=== PATIENT | male | born 1980 | race Caucasian/White ===

== ENCOUNTER 2018-08-08 18:36 | Emergency (ER) | payer BC ==
--- OUTSIDE RECORDS SUMMARY | 2018-08-08 18:38 | XMS REPORT | Continuity of Care Document ---
:1980 Author Organization Interface Problems Problem Status Onset Classification Date Comments Source Date Reported LUMBAR 4-5 ANNA Active 05/02/19 [place] [address] [facility] LUM PAIN Active 05/02/[address] 06/07 Active 05/02/[address] HNP (<span Active Problem 06/11/2015 lumbar [facility] ID="[id number]" Medical >Confirmed</span> Center )<sup>1</sup> None Resolved Problem 06/11/2015 [facility] Obesity Active Problem 06/11/2015 [facility] KORI (<span Active Problem 06/11/2015 [facility] ID="[id number]" Medical >Confirmed</span> Center ) Pain Active Problem 06/11/2015 [facility] OTHER Active [facility] DISC Center DISPLACEMENT, Medications Medication Details Route Status Patient Ordering Order Source Instructions Provider Date Oxycodone 5 mg, 1 tab, No Longer [facility] Route: PO, Drug Active 2015 Medical form: TAB, Q4H, Center Dosing Weight 145.455, kg, PRN Pain Score 4-6, Start date: 06/08/15 8:54:00, Duration: 30 day, Stop date: 07/08/15 8:53:00Notes: (Same as: Roxicodone) Metoprolol 1 mg, 1 mL, No Longer [facility] Route: IVP, Drug Active 2015 Medical form: INJ, Center Q5Min, Dosing Weight 145.455, kg, PRN Other -See Comment, Start date: 06/08/15 8:54:00, Duration: 5 doses or times, Stop date: 06/09/15 0:00:00Notes: (Same as: Lopressor) Push over 2 minutes Labetalol 10 mg, 2 mL, No Longer [facility] Route: IVP, Drug Active 2015 Medical form: INJ, Center Q5Min, Dosing Weight 145.455, kg, PRN Elevated BP, Start date: 06/08/15 8:54:00, Duration: 5 doses or times, Stop date: 06/09/15 0:00:00 Ondansetron 4 mg, 2 mL, No Longer [facility] Route: IVP, Drug Active 2015 Medical form: INJ, ONCE, Center Dosing Weight 145.455, kg, PRN Nausea & Vomiting, Start date: 06/08/15 8:54:00Notes: (Same as: Zodanae) MEDICATION WASTE Product Size: 4 mg Product Wasted: ___ mg Hydromorphone 0.5 mg, 0.25 mL, No Longer [place] Route: IVP, Drug Active 2015 Medical form: INJ, Center Q5Min, Dosing Weight 145.455, kg, PRN Pain Score 7-10, Start date: 06/08/15 8:54:00, Duration: 4 doses or times, Stop date: 06/09/15 0:00:00Notes: Same as: Dilaudid Naloxone 0.04 mg, 0.1 mL, No Longer [facility] Route: IVP, Drug Active 2015 Medical form: INJ, Center Q2MIN, Dosing Weight 145.455, kg, PRN Narcotic Reversal, Start date: 06/08/15 8:54:00, Duration: 8 doses or times, Stop date: 06/09/15 0:00:00Notes: Same as Narcan Flumazenil 0.2 mg, 2 mL, No Longer [facility] Route: IVP, Drug Active 2015 Medical form: INJ, PRN, Center Dosing Weight 145.455, kg, PRN Benzodiazepine Reversal, Initial dose, Start date: 06/08/15 8:54:00, Duration: 5 doses or times, Stop date: 06/09/15 0:00:00Notes: (Same as: Romazicon) Methocarbamol 500 mg=1 tab, Active Sandi 500 MG Oral PO, Q6H, PRN 2016 Medical Tablet Spasms, # 90 Center [Robaxin] tab, 0 Refill(s) Docusate Sodium 100 mg=1 cap, Active Sandi 100 MG Oral PO, BID, PRN 2016 Medical Capsule Constipation, # Center [Colace] 60 cap, 0 Refill(s) Famotidine 40 40 mg=1 tab, PO, Active [facility] MG Oral Tablet Daily, # 30 tab, 2016 Medical [Pepcid] 0 Refill(s) Center {21 See Active [facility] (Methylpredniso Instructions, 2015 Medical lone 4 MG Oral PO, Take by Center Tablet mouth as [Medrol]) } directed on Pack [Medrol label., X 6 day, Dosepak] # 1 Pack, 0 Refill(s) ceFAZolin 2 gm, 100 mL, Inactive [facility] Route: IVPB, 2015 Medical Drug form: INJ, Center PRE OP, Start date: 06/08/15 5:00:00, Duration: 30 day, Stop date: 07/08/15 4:59:00Notes: Same as: Ancef Allergies, Adverse Reactions, Alerts Substance Category Reaction Severity Reaction Status Date Comments Source type Reported Immunizations Immunization Date Given Site Status Last Updated Comments Source Results Order Name Results Value Reference Date Interpretation Comments Source Range CHEM PANEL B/C Ratio 11 6 - [address] CHEM PANEL AGAP 12.0 10.0 - 20.0 [facility] meq/L [address] [place] [address] CHEM PANEL Globulin 3.1 2.0 - 4.0 [facility] g/dL [address] [place] [address] CHEM PANEL A/G Ratio 1.5 0.7 - 1.[address] CHEM PANEL eGFR 100 05/28/ Result Comment: The eGFR is calculated using the CKD-EPI formula. In most young, healthy individuals the eGFR will be > 90 mL/min/1.73m2. The eGFR declines with age. An eGFR of 60-89 may be normal in [facility] mL/min/ 2015 some populations, particularly the elderly, for whom the CKD-EPI formula has not been extensively validated. Use of the eGFR is not recommended in the following populations: [facility] 1.73m2 Center Individuals with unstable creatinine concentrations, including patients and those with serious co-morbid conditions. Patients with extremes in muscle mass or diet. The data above are obtained from the National Kidney Disease Education Program (NKDEP) which additionally recommends that when the eGFR is used in patients with extremes of body mass index for purposes of drug dosing, the eGFR should be multiplied by the estimated BMI. CHEM PANEL Bili Total 0.7 0.2 - 1.3 [place] mg/dL 2015 [facility] CHEM PANEL ALT 85 0 - 65 [place] unit/L 2015 [facility] [place] CHEM PANEL Albumin Lvl 4.5 3.5 - 5.0 [place] g/dL 2015 [facility] CHEM PANEL Alk Phos 55 39 - 136 [place] unit/L 2015 [facility] CHEM PANEL AST 31 0 - 37 [place] unit/L 2015 [facility] CHEM PANEL Glucose Lvl 106 70 - 99 [place] mg/dL 2015 [facility] CHEM PANEL BUN 11 7 - 22 [place] mg/dL 2015 [facility] CHEM PANEL Creatinine 0.99 0.50 - 1.40 [place] Lvl mg/dL 2015 [facility] CHEM PANEL Sodium Lvl 143 135 - 145 [place] meq/L 2015 [facility] CHEM PANEL Potassium Lvl 5.0 3.5 - 5.1 [place] meq/L 2015 [facility] CHEM PANEL Chloride Lvl 104 95 - 109 [place] meq/L 2015 [facility] CHEM PANEL CO2 32 24 - 32 [place] meq/L 2015 [facility] CHEM PANEL Calcium Lvl 9.3 8.5 - 10.5 [place] mg/dL 2015 [facility] CHEM PANEL Total Protein 7.6 6.4 - 8.4 [place] g/dL 2015 [facility] HEMATOLOGY Lymphocytes # 2.9 1.0 - 5.5 [place] K/CM 2015 [facility] HEMATOLOGY Monocytes # 0.4 0.0 - 0.8 [place] K/CM 2015 [facility] HEMATOLOGY Monocytes 5.1 % 2.0 - 12.0 [facility] 2015 [facility] HEMATOLOGY Basophils 0.5 % 0.0 - 1.0 [facility] 2015 [facility] HEMATOLOGY Eosinophils 1.5 % 0.0 - 4.0 [facility] 2015 [facility] HEMATOLOGY Segs-Bands # 5.1 1.5 - 8.1 [place] K/CM 2015 [facility] HEMATOLOGY Segs 59.4 % 45.0 - 75.0 [facility] 2015 [facility] HEMATOLOGY Lymphocytes 33.5 % 20.0 - 40.[address] HEMATOLOGY Eosinophils # 0.1 0.0 - 0.5 [facility] 2015 [facility] HEMATOLOGY INR 0.99 0.85 - 1.[address] HEMATOLOGY PT 13.4 s 12.0 - 14.[address] HEMATOLOGY PTT 29.6 s 22.9 - 35.[address] HEMATOLOGY MCHC 33.7 32.0 - 36.0 [facility] g/dL 2015 [facility] HEMATOLOGY RDW 13.4 % 11.5 - 14.[address] HEMATOLOGY MPV 8.3 fL 7.4 - 10.[address] HEMATOLOGY Platelet 235 133 - [address] HEMATOLOGY MCH 29.5 pg 27.0 - 31.[address] HEMATOLOGY Hgb 16.5 14.0 - 18.0 [facility] g/dL 2015 [facility] HEMATOLOGY MCV 87.5 fL 80.0 - 94.[address] HEMATOLOGY Hct 49.0 % 42.0 - 54.[address] HEMATOLOGY WBC 8.6 3.7 - 10.[address] HEMATOLOGY RBC 5.60 4.70 - 6.[address] SPECIAL Hgb A1C 5.7 % <=5.6 % [facility] CHEMISTRY [address] [place] [address] Vital Signs Vital Sign Value Date Comments Source Respitory Rate 16 06/08/2015 [facility] Systolic (mm Hg) 128 06/08/2015 [facility] Diastolic (mm Hg) 67 06/08/2015 [facility] Respitory Rate 13 06/08/2015 [facility] Systolic (mm Hg) 124 06/08/2015 [facility] Diastolic (mm Hg) 86 06/08/2015 [facility] Respitory Rate 14 06/08/2015 [facility] Systolic (mm Hg) 99 06/08/2015 [facility] Diastolic (mm Hg) 73 06/08/2015 [facility] Weight 145.455 06/08/2015 [facility] BMI Calculated 42.31 06/08/2015 [facility] Height 185.42 cm 06/08/2015 [facility] Heart Rate 94 06/08/2015 [facility] Height 182.88 cm 05/29/2015 [facility] Weight 151.364 05/29/2015 [facility] BMI Calculated 45.26 05/29/2015 [facility] Encounters Location Location Encounter Encounter Reason Attending ADM DC Status Source Details Type Number For Provider Date Date Visit Outpatient [id number] ARNAUD TOWNSEND 06/07 [facility] [place] [facility] [place] [facility] [id number] Arnaud Townsend 06/07 06/08 [facility] Surgery /2015 [facility] Outpatient [id number] LIANG 06/19 [facility] [id number] ARNAUD TOWNSEND 08/13 [facility] [place] [place] [facility] [id number] ARNAUD TOWNSEND 11/21 [facility] [place] Procedures Procedure Code Date Perfomer Comments Source Cyst - pilonidal [id number] [facility] removed 2004 [facility] Epidural steroid [id number] [facility] injection [address] [place] [address]
--- OUTSIDE RECORDS SUMMARY | 2018-08-08 18:38 | XMS REPORT | Summary of Care ---
:1980 Author Organization [facility] Address [address], [place] [address]- Encounter HQ Narda(FIN) [id number] Date(s): 06/08/15 - 06/08/15 [facility] [address] [place] [address]- [employer] Discharge Disposition: Home Attending Physician: Ciro Serrato MD Admitting Physician: Ciro Serrato MD Referring Physician: Ciro Serrato MD Vital Signs Most recent to oldest 1 2 3 [Reference Range]: Height 185.42 cm 182.88 cm (06/08/15 6:37 AM) (05/29/15 3:29 PM) Blood Pressure [90-140/60-90 128/67 mmHg 124/86 mmHg 99/73 mmHg mmHg] (06/08/15 10:47 AM) (06/08/15 10:31 AM) (06/08/15 10:20 AM) Respiratory Rate [14-20 16 BRMIN 13 BRMIN 14 BRMIN BRMIN] (06/08/15 10:47 AM) *LOW* (06/08/15 10:20 AM) (06/08/15 10:31 AM) Peripheral Pulse Rate 94 bpm [60-100 bpm] (06/08/15 6:37 AM) Weight 145.455 kg 151.364 kg (06/08/15 6:37 AM) (05/29/15 3:29 PM) Body Mass Index 42.31 m2 45.26 m2 (06/08/15 6:37 AM) (05/29/15 3:29 PM) Problem List Condition Effective Dates Status Health Status Informant HNP (herniated nucleus Active pulposus)(Confirmed)1 None(Confirmed) Resolved Obesity(Confirmed) Active KORI (obstructive sleep Active apnea)(Confirmed) Pain(Confirmed) Active 1lumbar Allergies, Adverse Reactions, Alerts Substance Reaction Severity Status NKDA Active Medications ceFAZolin 2 gm, 100 mL, Route: IVPB, Drug form: INJ, PRE OP, Start date: 06/08/15 5:00:00 , Duration: 30 day, Stop date: 07/08/15 4:59:00 Notes: Same as: Ancef Start Date: 06/08/15 Stop Date: 06/08/15 Status: CompletedColace 100 mg oral capsule 100 mg=1 cap, PO, BID, PRN Constipation, # 60 cap, 0 Refill(s) Start Date: 06/08/15 Status: Orderedflumazenil 0.2 mg, 2 mL, Route: IVP, Drug form: INJ, PRN, Dosing Weight 145.455, kg, PRN Benzodiazepine Reversal, Initial dose, Start date: 06/08/15 8:54:00, Duration: 5 doses or times, Stop date: 06/09/15 0:00:00 Notes: (Same as: Romazicon) Start Date: 06/08/15 Stop Date: 06/09/15 Status: Completedhydromorphone 0.5 mg, 0.25 mL, Route: IVP, Drug form: INJ, Q5Min, Dosing Weight 145.455, kg, PRN Pain Score 7-10, Start date: 06/08/15 8:54:00, Duration: 4 doses or times, Stop date: 06/09/15 0:00:00 Notes: Same as: Dilaudid Start Date: 06/08/15 Stop Date: 06/09/15 Status: Completedlabetalol 10 mg, 2 mL, Route: IVP, Drug form: INJ, Q5Min, Dosing Weight 145.455, kg, PRN Elevated BP, Start date: 06/08/15 8:54:00, Duration: 5 doses or times, Stop date : 06/09/15 0:00:00 Start Date: 06/08/15 Stop Date: 06/09/15 Status: CompletedMedrol Dosepak 4 mg oral tablet See Instructions, PO, Take by mouth as directed on label., X 6 day, # 1 Pack, 0 Refill(s) Start Date: 06/08/15 Stop Date: 06/14/15 Status: Orderedmetoprolol 1 mg, 1 mL, Route: IVP, Drug form: INJ, Q5Min, Dosing Weight 145.455, kg, PRN Other -See Comment, Start date: 06/08/15 8:54:00, Duration: 5 doses or times, Stop date: 06/09/15 0:00:00 Notes: (Same as: Lopressor)Push over 2 minutes Start Date: 06/08/15 Stop Date: 06/09/15 Status: Completednaloxone 0.04 mg, 0.1 mL, Route: IVP, Drug form: INJ, Q2MIN, Dosing Weight 145.455, kg, PRN Narcotic Reversal, Start date: 06/08/15 8:54:00, Duration: 8 doses or times , Stop date: 06/09/15 0:00:00 Notes: Same as Narcan Start Date: 06/08/15 Stop Date: 06/09/15 Status: Completedondansetron 4 mg, 2 mL, Route: IVP, Drug form: INJ, ONCE, Dosing Weight 145.455, kg, PRN Nausea & Vomiting, Start date: 06/08/15 8:54:00 Notes: (Same as: Nubia) MEDICATION WASTE Product Size: 4 mgProduct Wasted: ___ mg Start Date: 06/08/15 Stop Date: 06/09/15 Status: DiscontinuedoxyCODONE 5 mg, 1 tab, Route: PO, Drug form: TAB, Q4H, Dosing Weight 145.455, kg, PRN Pain Score 4-6, Start date: 06/08/15 8:54:00, Duration: 30 day, Stop date: 07/07 8:53:00 Notes: (Same as: Roxicodone) Start Date: 06/08/15 Stop Date: 06/09/15 Status: DiscontinuedPepcid 40 mg oral tablet 40 mg=1 tab, PO, Daily, # 30 tab, 0 Refill(s) Start Date: 06/08/15 Status: OrderedRobaxin 500 mg oral tablet 500 mg=1 tab, PO, Q6H, PRN Spasms, # 90 tab, 0 Refill(s) Start Date: 06/08/15 Stop Date: 07/09/15 Status: Ordered Results ELECTROLYTES Most recent to oldest [Reference Range]: 1 Sodium Lvl [135-145 mEq/L] 143 mEq/L (05/29/15 12:30 PM) Potassium Lvl [3.5-5.1 mEq/L] 5.0 mEq/L (05/29/15 12:30 PM) Chloride Lvl [95-109 mEq/L] 104 mEq/L (05/29/15 12:30 PM) CO2 [24-32 mEq/L] 32 mEq/L (05/29/15 12:30 PM) AGAP [10.0-20.0 mEq/L] 12.0 mEq/L (05/29/15 12:30 PM) CHEM PANEL Most recent to oldest [Reference Range]: 1 Creatinine Lvl [0.50-1.40 mg/dL] 0.99 mg/dL (05/29/15 12:30 PM) eGFR 100 mL/min/1.73m2 1 *NA* (05/29/15 12:30 PM) BUN [7-22 mg/dL] 11 mg/dL (05/29/15 12:30 PM) B/C Ratio [6-25] 11 (05/29/15 12:30 PM) Glucose Lvl [70-99 mg/dL] 106 mg/dL *HI* (05/29/15 12:30 PM) Total Protein [6.4-8.4 g/dL] 7.6 g/dL (05/29/15 12:30 PM) Albumin Lvl [3.5-5.0 g/dL] 4.5 g/dL (05/29/15 12:30 PM) Globulin [2.0-4.0 g/dL] 3.1 g/dL (05/29/15 12:30 PM) A/G Ratio [0.7-1.6] 1.5 (05/29/15 12:30 PM) Calcium Lvl [8.5-10.5 mg/dL] 9.3 mg/dL (05/29/15 12:30 PM) ALT [0-65 unit/L] 85 unit/L *HI* (05/29/15 12:30 PM) AST [0-37 unit/L] 31 unit/L (05/29/15 12:30 PM) Alk Phos [39-136 unit/L] 55 unit/L (05/29/15 12:30 PM) Bili Total [0.2-1.3 mg/dL] 0.7 mg/dL (05/29/15 12:30 PM) 1Result Comment: The eGFR is calculated using the CKD-EPI formula. In most young , healthy individualsthe eGFR will be >90 mL/min/1.73m2. The eGFR declines with age. An eGFR of 60-89 may be normal in some populations, particularly the elderly, for whom the CKD-EPI formula has not been extensively validated. Use of the eGFR is not recommended in the following populations: Individuals with unstable creatinine concentrations, including patients and those with serious co-morbid conditions. Patients with extremes in muscle mass or diet. The data above are obtained from the National Kidney Disease Education Program ( NKDEP) which additionally recommends that when the eGFR is used in patients with extremes of body mass index for purposesof drug dosing, the eGFR should be multiplied by the estimated BMI.SPECIAL CHEMISTRY Most recent to oldest [Reference Range]: 1 Hgb A1C [<=5.6 %] 5.7 % *HI* (05/29/15 12:30 PM) HEMATOLOGY Most recent to oldest [Reference Range]: 1 WBC [3.7-10.4 K/CMM] 8.6 K/CMM (05/29/15 12:30 PM) RBC [4.70-6.10 M/CMM] 5.60 M/CMM (05/29/15 12:30 PM) Hgb [14.0-18.0 g/dL] 16.5 g/dL (05/29/15 12:30 PM) Hct [42.0-54.0 %] 49.0 % (05/29/15 12:30 PM) MCV [80.0-94.0 fL] 87.5 fL (05/29/15 12:30 PM) MCH [27.0-31.0 pg] 29.5 pg (05/29/15 12:30 PM) MCHC [32.0-36.0 g/dL] 33.7 g/dL (05/29/15 12:30 PM) RDW [11.5-14.5 %] 13.4 % (05/29/15 12:30 PM) Platelet [133-450 K/CMM] 235 K/CMM (05/29/15 12:30 PM) MPV [7.4-10.4 fL] 8.3 fL (05/29/15 12:30 PM) Segs [45.0-75.0 %] 59.4 % (05/29/15 12:30 PM) Lymphocytes [20.0-40.0 %] 33.5 % (05/29/15 12:30 PM) Monocytes [2.0-12.0 %] 5.1 % (05/29/15 12:30 PM) Eosinophils [0.0-4.0 %] 1.5 % (05/29/15 12:30 PM) Basophils [0.0-1.0 %] 0.5 % (05/29/15 12:30 PM) Segs-Bands # [1.5-8.1 K/CMM] 5.1 K/CMM (05/29/15 12:30 PM) Lymphocytes # [1.0-5.5 K/CMM] 2.9 K/CMM (05/29/15 12:30 PM) Monocytes # [0.0-0.8 K/CMM] 0.4 K/CMM (05/29/15 12:30 PM) Eosinophils # [0.0-0.5 K/CMM] 0.1 K/CMM (05/29/15 12:30 PM) PT [12.0-14.7 seconds] 13.4 seconds (05/29/15 12:30 PM) INR [0.85-1.17] 0.99 (05/29/15 12:30 PM) PTT [22.9-35.8 seconds] 29.6 seconds (05/29/15 12:30 PM) Immunizations No data available for this section Procedures Procedure Date Related Diagnosis Body Site Cyst - pilonidal removed 2004 Epidural steroid injection 2014 Social History Social History Type Response Smoking Status Never smoker; Exposure to Tobacco Smoke None; Cigarette Smoking Last 365 Days No; Reg Smoking Cessation Counseling No Assessment and Plan No data available for this section
--- OUTSIDE RECORDS SUMMARY | 2018-08-08 18:38 | XMS REPORT ---
:1980 Author Organization e[employer] Care Team Providers Name Role Phone [facility] Provider Role Unavailable Allergies, Adverse Reactions, Alerts Substance Reaction Event Type N.K.D.A. Info Not Available Non Drug Allergy Problems Problem Type Condition Code Onset Dates Condition Status Problem Edema R60.9 Active Problem Hypothyroidism E03.9 Active Problem Palpitation R00.2 Active Problem Fatigue, unspecified type R53.83 Active Assessment Obstructive sleep apnea G47.33 Active Problem Hand paresthesia R20.2 Active Assessment Decreased libido R68.82 Active Assessment Carpal tunnel syndrome, bilateral G56.03 Active upper limbs Problem Decreased libido R68.82 Active Problem Abnormal levels of other serum R74.8 Active enzymes Problem Kyphosis 737.10 Active Problem Carpal tunnel syndrome, bilateral G56.03 Active upper limbs Problem Other intervertebral disc M51.37 Active degeneration, lumbosacral region Assessment 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 26983560399 1000 UNIT Orally Active 1 tablet Once a day Synthroid [facility] 10852534074 50 MCG Orally Active 1 tablet on Once a day an empty stomach in the morning Lyrica [facility] 06721021725 150 Active TAKE ONE CAPSULE BY MOUTH TWICE DAILY Vitamin B-1 ND 78900583124 100 MG Orally Active 1 tablet Once a day Omeprazole ND 17386381180 40 MG Orally Active 1 capsule Once a day Lyrica [facility] 38148781967 150 MG Orally Active 1 capsule 1 Twice a day to 3 hours before bedtime in the evening Results No Known Results Summary Purpose [facility]
--- OUTSIDE RECORDS SUMMARY | 2018-08-08 18:39 | XMS REPORT ---
:1980 Author Organization [employer] Care Team Providers Name Role Phone Benedict Alexandr Provider Role Unavailable Allergies, Adverse Reactions, Alerts Substance Reaction Event Type N.K.D.A. 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 Problem Other intervertebral disc M51.37 Active degeneration, lumbosacral region Problem Abnormal levels of other serum R74.8 Active enzymes Problem Adult BMI 40.0-44.9 kg/sq m Z68.41 Active Problem 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 Assessment 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 Assessment Hypothyroidism E03.9 Active Problem 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 Assessment Neuropathy, peripheral G62.9 Active Problem Fatigue, unspecified type R53.83 Active Problem Hand paresthesia R20.2 Active Problem Family history of melanoma Z80.8 Active Problem Decreased libido R68.82 Active Problem Neuropathy, peripheral G62.9 Active Problem Mixed hyperlipidemia E78.2 Active Problem Carpal tunnel syndrome, bilateral G56.03 Active upper limbs Problem Abnormal liver enzymes R74.8 Active Problem Edema R60.9 Active Problem Obstructive sleep apnea G47.33 Active Problem Low back pain M54.5 Active Medications Medication Code Code Instructions Start End Status Dosage System Date Date Duloxetine HCl [facility] 96186944557 30 MG Orally May 22, Active 1 capsule Once a day [address] [facility] 65766160970 150 MG Orally Active 1 capsule Twice a day 1 to 3 hours before bedtime in the evening Omeprazole [facility] 28113247330 40 MG Orally Active 1 capsule Once a day Vitamin B-[address] [facility] 86916830654 100 MG Orally Active 1 tablet Once a day Synthroid [facility] 09661361930 50 MCG Orally Active 1 tablet Once a day on an empty stomach in the morning Vitamin D [facility] 24816243531 1000 UNIT Orally Active 1 tablet Once a day Results No Known Results Summary Purpose [employer] Submission
--- OUTSIDE RECORDS SUMMARY | 2018-08-08 18:39 | XMS REPORT ---
:1980 Author Organization e[employer]Works Care Team Providers Name Role Phone Alexandr Mcmullen Provider Role Unavailable Allergies, Adverse Reactions, Alerts Substance Reaction Event Type N.K.D.A. 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 Problem Carpal tunnel syndrome, bilateral G56.03 Active upper limbs Problem Other intervertebral disc M51.37 Active degeneration, lumbosacral region Problem Fatigue, unspecified type R53.83 Active Problem Hand paresthesia R20.2 Active Problem Neuropathy, peripheral G62.9 Active Assessment Family history of melanoma Z80.8 Active Assessment 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 Problem Low back pain M54.5 Active Problem Abnormal liver enzymes R74.8 Active Problem Mixed hyperlipidemia E78.2 Active Problem Edema R60.9 Active Problem Obstructive sleep apnea G47.33 Active Problem Palpitation R00.2 Active Medications Medication Code Code Instructions Start End Status Dosage System Date Date Lyrica [facility] 06180993111 150 Active TAKE ONE CAPSULE BY MOUTH TWICE DAILY Neomycin-Polym [facility] 35937059110 3.5-71679-7 Otic Nov 04, Active 4 drops yxin-HC Twice a day 2018 into affected ear Vitamin B-1 ND 14652948595 100 MG Orally Active 1 tablet Once a day Synthroid ND 28159856220 50 MCG Orally Active 1 tablet on Once a day an empty stomach in the morning Omeprazole ND 48646029034 40 MG Orally Active 1 capsule Once a day Lyrica [facility] 22230994901 150 MG Orally Active 1 capsule 1 Twice a day to 3 hours before bedtime in the evening Vitamin D [facility] 23250005269 1000 UNIT Orally Active 1 tablet Once a day Results No Known Results Summary Purpose eClinicalWorks Submission
--- OUTSIDE RECORDS SUMMARY | 2018-08-08 18:39 | XMS REPORT ---
:1980 Author Organization [employer]Works Care Team Providers Name Role Phone Benedict Alexandr Provider Role Unavailable Allergies No Known Allergies Problems Problem Type Condition Code Onset Dates Condition Status Problem Edema R60.9 Active Problem Hypothyroidism E03.9 Active Problem Palpitation R00.2 Active Problem Fatigue, unspecified type R53.83 Active Problem Hand paresthesia R20.2 Active Problem Decreased libido R68.82 Active Problem Abnormal levels of other serum R74.8 Active enzymes Problem Kyphosis 737.10 Active Problem Carpal tunnel syndrome, bilateral G56.03 Active upper limbs Problem Other intervertebral disc M51.37 Active degeneration, lumbosacral region Problem Mixed hyperlipidemia E78.2 Active Problem Obstructive sleep apnea G47.33 Active Problem Low back pain M54.5 Active Problem Neuropathy, peripheral G62.9 Active Problem Abnormal liver enzymes R74.8 Active Medications No Known Medications Results No Known Results Summary Purpose eClinicalWorks Submission
--- OUTSIDE RECORDS SUMMARY | 2018-08-08 18:39 | XMS REPORT ---
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 Problem Carpal tunnel syndrome, bilateral G56.03 Active upper limbs Problem Other intervertebral disc M51.37 Active degeneration, lumbosacral region Problem Fatigue, unspecified type R53.83 Active Problem Hand paresthesia R20.2 Active Problem Neuropathy, peripheral G62.9 Active Assessment Carpal tunnel syndrome, bilateral G56.03 Active upper limbs Problem Low back pain M54.5 Active Problem Abnormal liver enzymes R74.8 Active Problem Mixed hyperlipidemia E78.2 Active Problem Edema R60.9 Active Problem Obstructive sleep apnea G47.33 Active Problem Palpitation R00.2 Active Medications Medication Code System Code Instructions Start End Date Status Dosage Date Lyrica [facility] 03897492364 150 MG Orally Active 1 capsule 1 Twice a day to 3 hours before bedtime in the evening Results No Known Results Summary Purpose eClinicalWorks Submission
--- OUTSIDE RECORDS SUMMARY | 2018-08-08 18:39 | XMS REPORT ---
:1980 [facility] Team Providers Name Role Phone Jose Juan Mcmullenh Provider Role Unavailable Allergies, Adverse Reactions, Alerts Substance Reaction Event Type N.K.D.A. Info Not Available Non Drug Allergy Problems Problem Type Condition Code Onset Dates Condition Status Assessment Abnormal liver enzymes R74.8 Active Assessment Abnormal levels of other serum R74.8 Active enzymes Assessment Carpal tunnel syndrome, bilateral G56.03 Active upper limbs Assessment Decreased libido R68.82 Active Assessment Obstructive sleep apnea G47.33 Active Problem Palpitation R00.2 Active Assessment Mixed hyperlipidemia E78.2 Active Problem Hypothyroidism E03.9 Active Assessment Fatigue, unspecified type R53.83 Active Problem Carpal tunnel syndrome, bilateral G56.03 Active upper limbs Problem Abnormal levels of other serum R74.8 Active enzymes Problem Idiopathic kyphosis M40.209 Active Problem 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 Problem Family history of melanoma Z80.8 Active Assessment Refused influenza vaccine Z28.21 Active Assessment Adult BMI 40.0-44.9 kg/sq m Z68.41 Active Problem Adult BMI 40.0-44.9 kg/sq m Z68.41 Active Assessment Hypothyroidism E03.9 Active Problem Hand paresthesia R20.2 Active Problem Other intervertebral disc M51.37 Active degeneration, lumbosacral region Problem Decreased libido R68.82 Active Problem Fatigue, unspecified type R53.83 Active Problem Neuropathy, peripheral G62.9 Active Problem Mixed hyperlipidemia E78.2 Active Assessment Well adult on routine health check Z00.00 Active Problem Abnormal liver enzymes R74.8 Active Problem Edema R60.9 Active Problem Obstructive sleep apnea G47.33 Active Problem Low back pain M54.5 Active Medications Medication Code Code Instructions Start End Status Dosage System Date Date Omeprazole NDC 97051150184 40 MG Orally Active 1 capsule Once a day Synthroid NDC 21699362817 50 MCG Orally Active 1 tablet on Once a day an empty stomach in the morning Synthroid NDC 54179320243 50 MCG Orally Active 1 tablet on Once a day an empty stomach in the morning Lyrica [facility] 30494413245 150 MG Orally Active 1 capsule 1 Twice a day to 3 hours before bedtime in the evening Neomycin-Polym [facility] 44305647057 3.5-61092-1 Otic Nov 04, Active 4 drops yxin-HC Twice a day 2017 into affected ear Vitamin D [facility] 09870715147 1000 UNIT Orally Active 1 tablet Once a day Vitamin B-1 [facility] 95027695235 100 MG Orally Active 1 tablet Once a day Lyrica [facility] 64444623131 150 Active TAKE ONE CAPSULE BY MOUTH TWICE DAILY Results No Known Results Summary Purpose eClinicalWorks Submission
--- OUTSIDE RECORDS SUMMARY | 2018-08-08 18:39 | XMS REPORT ---
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 Problem Carpal tunnel syndrome, bilateral G56.03 Active upper limbs Problem Other intervertebral disc M51.37 Active degeneration, lumbosacral region Problem Fatigue, unspecified type R53.83 Active Problem Hand paresthesia R20.2 Active Problem Neuropathy, peripheral G62.9 Active Assessment Influenza-like illness R69 Active Assessment Acute non-recurrent maxillary J01.00 Active sinusitis Problem Low back pain M54.5 Active Problem Abnormal liver enzymes R74.8 Active Problem Mixed hyperlipidemia E78.2 Active Problem Edema R60.9 Active Problem Obstructive sleep apnea G47.33 Active Problem Palpitation R00.2 Active Medications Medication Code Code Instructions Start End Status Dosage System Date Date Lyrica [facility] 46480649354 150 Active TAKE ONE CAPSULE BY MOUTH TWICE DAILY Omeprazole ND 69573905507 40 MG Orally Active 1 capsule Once a day Vitamin B-1 [facility] 03360248256 100 MG Orally Active 1 tablet Once a day Vitamin D [facility] 55962522371 1000 UNIT Active 1 tablet Orally Once a day Neomycin-Polymyx [facility] 86415886641 3.5-66128-4 Nov 04, Active 4 drops in-HC Otic Twice a 2018 into day affected ear Lyrica [facility] 66886985090 150 MG Orally Active 1 capsule 1 Twice a day to 3 hours before bedtime in the evening Azithromycin ND 43396349134 250 MG Orally Feb 17, Feb 22, Active 2 tablets Once a day 2017 2017 on the first day, then 1 tablet daily for 4 days Synthroid [facility] 14729084772 50 MCG Orally Active 1 tablet on Once a day an empty stomach in the morning Results Name Result Date Reference Range Unit Abnormality Flag FLU TEST ----A Neg [id number] ----B Neg [id number] Summary Purpose eClinicalWorks Submission
[2018-08-08] MEDS ORDERED: DIAZEPAM 5 MG TABLET ONE (19:31)
[2018-08-08] MEDS ORDERED: HYDROCODONE/APAP 10/325 TAB ONE (19:31)
[2018-08-08] MEDS ORDERED: KETOROLAC 30 MG/ML INJ ONE (20:39)
[2018-08-08] MEDS ORDERED: MORPHINE 4 MG/ML SYR ONE (20:39)
--- NOTE | 2018-08-08 21:30 | EDPHYS ---
Physician Documentation [facility] Name: Won Lam Age: 38 yrs Sex: Male : 1980 Arrival Date: 08/08/2018 Time: 18:39 Bed 25 Private MD: ED Physician Noble Moreno HPI: 08/08 19:00 This 38 yrs old Male presents to ER via Ambulatory with complaints of jmm Shoulder Pain, Neck and Upper Back Pain. 19:00 The patient or guardian complains of pain, that is acute. Onset: The symptoms/episode jmm began/occurred gradually, 1 week(s) ago. Modifying factors: the symptoms are alleviated by nothing. The symptoms are aggravated by movement. This is a 38 year old male with no chronic medical conditions that presents to the ED with complaints of left upper back pain which he awoke to approx 1 week ago. patient denies chest pain, denies shortness of breath. patient states pain is not relieved with otc medication. . Historical: - Allergies: 18:41 No Known Drug Allergies; sv - PMHx: 18:41 None; sv - PSHx: 18:41 cyst removal; back; sv - Immunization history:: Adult Immunizations up to date. - Social history:: Smoking status: Patient uses tobacco products, vape. - Ebola Screening: : No symptoms or risks identified at this time. ROS: 19:00 Constitutional: Negative for fever, chills, and weight loss, Cardiovascular: Negative jmm for chest pain, palpitations, and edema, Respiratory: Negative for shortness of breath, cough, wheezing, and pleuritic chest pain. 19:00 Back: Positive for pain at rest, pain with movement. 19:00 All other systems are negative. Exam: 19:00 Constitutional: This is a well developed, well nourished patient who is awake, alert, jmm and in no acute distress. Head/Face: atraumatic. Eyes: EOMI, no conjunctival erythema appreciated ENT: Moist Mucus Membranes Neck: Trachea midline, Supple Chest/axilla: Normal chest wall appearance and motion. Cardiovascular: Regular rate and rhythm. No edema appreciated Respiratory: Normal respirations, no respiratory distress appreciated Abdomen/GI: Non distended, soft 19:00 Back: left trapezius tenderness on palpation, no midline tenderness is appreciated, no abscess or mass is appreciated. 19:00 Musculoskeletal/extremity: ROM: intact in all extremities. 19:00 Skin: Appearance: Color: normal in color. 19:00 Neuro: Orientation: is normal, Mentation: is normal, Memory: is normal. 19:00 Psych: Behavior/mood is pleasant, cooperative. Vital Signs: 18:41 BP 155 / 97; Pulse 82; Resp 20; Temp 97.6; Pulse Ox 96% ; Weight 154.22 kg; Height 6 sv ft. 1 in. (185.42 cm); Pain 10/10; 19:19 BP 164 / 97; Pulse 84; Resp 18 S; Temp 97.9(O); Pulse Ox 96% on R/A; ca1 20:30 BP 163 / 96; Pulse 78; Resp 18 S; Temp 97.9(O); Pulse Ox 96% on R/A; ca1 21:21 BP 162 / 89; Pulse 70; Resp 19 S; Temp 97.8(O); Pulse Ox 95% on R/A; ca1 18:41 Body Mass Index 44.86 (154.22 kg, 185.42 cm) sv MDM: 19:00 Patient medically screened. [facility] 20:57 Data reviewed: vital signs, nurses notes. Counseling: I had a detailed discussion with tennille the patient and/or guardian regarding: the historical points, exam findings, and any diagnostic results supporting the discharge/admit diagnosis, the need for outpatient follow up, to return to the emergency department if symptoms worsen or persist or if there are any questions or concerns that arise at home. Admission orders: after a detailed discussion of the patient's condition and case, the admit orders are written by me. ED course: Symptoms appear consistent with a trapezius strain. I do not suspect dissection. Pain is described as an ache, patient denies chest pain. Decreased pain on discharge. Patient advised to follow up with his PCP and is otherwise given strict return precautions. . Administered Medications: 19:13 Drug: [place] 10 mg-325 mg 1 tabs Route: PO; ca1 20:20 Follow up: Response: No adverse reaction; Pain is unchanged, physician notified ca1 19:14 Drug: Valium 5 mg Route: PO; ca1 20:20 Follow up: Response: No adverse reaction; Pain is unchanged, physician notified ca1 20:23 Drug: Ketorolac 30 mg Route: IM; Site: right deltoid; ca1 21:23 Follow up: Response: No adverse reaction; Pain is decreased ca1 20:25 Drug: morphine 4 mg Route: IM; Site: left deltoid; ca1 21:23 Follow up: Response: No adverse reaction; Pain is decreased ca1 Disposition: 08/08/18 21:29 Discharged to Home. Impression: Strain of muscle and tendon of back wall of thorax. - Condition is Stable. - Discharge Instructions: Thoracic Strain. - Prescriptions for Zanaflex 4 mg Oral Tablet - take 1 tablet by ORAL route every 8 hours As needed; 20 tablet. Medrol (Jose Roberto) 4 mg Oral Tablets, Dose Pack - take 1 tablet by ORAL route as directed - follow package instructions; 1 packet. - Medication Reconciliation Form, Thank You Letter, Antibiotic Education, Prescription Opioid Use form. - Follow up: Richard Kwan MD; When: 2 - 3 days; Reason: Recheck today's complaints, Continuance of care, Re-evaluation by your physician. Addendum: 08/10/2018 06:31 Co-signature as Attending Physician, Noble Moreno MD I agree with the assessment and k dr plan of care. Signatures: Caro Domínguez RN RN Noble Moreno MD MD [facility] Jeff Anne PA PA [facility] Nasrin Moreira, RN RN ca1 Corrections: (The following items were deleted from the chart) 08/08 22:06 21:29 08/08/2018 21:29 Discharged to Home. Impression: Strain of muscle and tendon of ca1 back wall of thorax. Condition is Stable. Forms are Medication Reconciliation Form, Thank You Letter, Antibiotic Education, Prescription Opioid Use. Follow up: Dr. Richard Kwan; When: 2 - 3 days; Reason: Recheck today's complaints, Continuance of care, Re-evaluation by your physician. tennille
--- NOTE | 2018-08-08 21:30 | ER ---
Nurse's Notes [facility] Name: Won Lam Age: 38 yrs Sex: Male : 1980 Arrival Date: 08/08/2018 Time: 18:39 Bed 25 Private MD: Diagnosis: Strain of muscle and tendon of back wall of thorax Presentation: 08/08 18:40 Presenting complaint: Patient states: neck pain, left side, left upper back pain x 1 sv week. Denies fall or head injury. Transition of care: patient was not received from another setting of care. Onset of symptoms was August 01, 2018. Initial Sepsis Screen: Does the patient meet any 2 criteria? No. Patient's initial sepsis screen is negative. Does the patient have a suspected source of infection? No. Patient's initial sepsis screen is negative. Care prior to arrival: None. 18:40 Method Of Arrival: Ambulatory sv 18:40 Acuity: JERED 4 sv 19:35 Risk Assessment: Do you want to hurt yourself or someone else? Patient reports no ca1 desire to harm self or others. Historical: - Allergies: 18:41 No Known Drug Allergies; sv - PMHx: 18:41 None; sv - PSHx: 18:41 cyst removal; back; sv - Immunization history:: Adult Immunizations up to date. - Social history:: Smoking status: Patient uses tobacco products, vape. - Ebola Screening: : No symptoms or risks identified at this time. Screenin:50 Abuse screen: Denies threats or abuse. Denies injuries from another. Nutritional ca1 screening: No deficits noted. Tuberculosis screening: No symptoms or risk factors identified. Fall Risk None identified. Assessment: 18:50 General: Appears in no apparent distress. uncomfortable, Behavior is calm, cooperative, ca1 appropriate for age. Pain: Complains of pain in left trapezius and left scapular area Pain radiates to left arm and neck Pain currently is 8 out of 10 on a pain scale. Quality of pain is described as crampy, sharp, crampy pain that does not go away Pain began a week ago but has been progressive Is continuous, Aggravated by repositioning. Neuro: Level of Consciousness is awake, alert, obeys commands, Oriented to person, place, time, situation. Cardiovascular: Heart tones S1 S2 present Capillary refill < 3 seconds Patient's skin is warm and dry. Respiratory: Airway is patent Respiratory effort is even, unlabored, Respiratory pattern is regular, symmetrical, Breath sounds are clear bilaterally. GI: No deficits noted. No signs and/or symptoms were reported involving the gastrointestinal system. : No deficits noted. No signs and/or symptoms were reported regarding the genitourinary system. EENT: No deficits noted. No signs and/or symptoms were reported regarding the EENT system. Derm: Skin is intact, is healthy with good turgor, Skin is pink, warm \T\ dry. Musculoskeletal: Circulation, motion, and sensation intact. Capillary refill < 3 seconds, Range of motion: limited in left shoulder. 20:19 Reassessment: Patient appears in no apparent distress at this time. Patient is alert, ca1 oriented x 3, equal unlabored respirations, skin warm/dry/pink. 21:21 Reassessment: Patient appears in no apparent distress at this time. Patient is alert, ca1 oriented x 3, equal unlabored respirations, skin warm/dry/pink. Patient states feeling better. 21:42 Reassessment: Patient appears in no apparent distress at this time. Patient is alert, ca1 oriented x 3, equal unlabored respirations, skin warm/dry/pink. Vital Signs: 18:41 BP 155 / 97; Pulse 82; Resp 20; Temp 97.6; Pulse Ox 96% ; Weight 154.22 kg; Height 6 sv ft. 1 in. (185.42 cm); Pain 10/10; 19:19 BP 164 / 97; Pulse 84; Resp 18 S; Temp 97.9(O); Pulse Ox 96% on R/A; ca1 20:30 BP 163 / 96; Pulse 78; Resp 18 S; Temp 97.9(O); Pulse Ox 96% on R/A; ca1 21:21 BP 162 / 89; Pulse 70; Resp 19 S; Temp 97.8(O); Pulse Ox 95% on R/A; ca1 18:41 Body Mass Index 44.86 (154.22 kg, 185.42 cm) sv ED Course: 18:39 Patient arrived in ED. as 18:41 Triage completed. sv 18:42 Arm band placed on. sv 18:47 [facility] 18:47 Noble Moreno MD is Attending Physician. [facility] 18:47 Nasrin Moreira, RN is Primary Nurse. ca1 18:50 Patient has correct armband on for positive identification. Bed in low position. Call ca1 light in reach. Side rails up X 1. Pulse ox on. NIBP on. Warm blanket given. 21:21 Nasrin Moreira, RN is Primary Nurse. ca1 21:29 Richard wKan MD is Referral Physician. [facility] 21:47 No provider procedures requiring assistance completed. Patient did not have IV access ca1 during this emergency room visit. Administered Medications: 19:13 Drug: [place] 10 mg-325 mg 1 tabs Route: PO; ca1 20:20 Follow up: Response: No adverse reaction; Pain is unchanged, physician notified ca1 19:14 Drug: Valium 5 mg Route: PO; ca1 20:20 Follow up: Response: No adverse reaction; Pain is unchanged, physician notified ca1 20:23 Drug: Ketorolac 30 mg Route: IM; Site: right deltoid; ca1 21:23 Follow up: Response: No adverse reaction; Pain is decreased ca1 20:25 Drug: morphine 4 mg Route: IM; Site: left deltoid; ca1 21:23 Follow up: Response: No adverse reaction; Pain is decreased ca1 Outcome: 21:29 Discharge ordered by MD. [facility] 21:47 Discharged to home ambulatory, with significant other. ca1 21:47 Condition: stable 21:47 Discharge instructions given to patient, Instructed on discharge instructions, follow up and referral plans. medication usage, Demonstrated understanding of instructions, follow-up care, medications, Prescriptions given X 2. 22:06 Patient left the ED. ca1 Signatures: Caro Domínguez RN RN Jeff Anne PA PA [employer] as Nasrin Moreira RN RN ca1
== END 2018-08-08 22:06 | disposition home or self-care (01) ==
LOC: ER 18:36
DX: S29.012A Strain of muscle and tendon of back wall of thorax, initial encounter (principal); Z72.0 Tobacco use
CPT/HCPCS: 96372; 99283

== ENCOUNTER 2018-10-01 15:40 | Emergency (ER) | payer BC ==
--- OUTSIDE RECORDS SUMMARY | 2018-10-01 15:42 | XMS REPORT | Continuity of Care Document ---
:1980 Author Organization [employer] Care Team Providers Name Role Phone [employer] Unavailable Unavailable Problems Problem Status Onset Classification Date Comments Source Date Reported LUM PAIN Active 05/02/[address] LUMBAR 4-5 ANNA Active 05/02/19 [facility] DISC [facility] [place] 06/07 Active 05/02/[address] HNP (Confirmed)1 Active Problem 06/11/2015 lumbar [facility] None Resolved Problem 06/11/2015 [facility] Obesity Active Problem 06/11/2015 [facility] KORI (Confirmed) Active Problem 06/11/2015 [facility] Pain Active Problem 06/11/2015 [facility] OTHER Active [facility] DISC Center DISPLACEMENT, Medications Medication Details Route Status Patient Ordering Order Source Instructions Provider Date Oxycodone 5 mg, 1 tab, No Longer [facility] Route: PO, Drug Active 2015 Medical form: TAB, Q4H, Center Dosing Weight 145.455, kg, PRN Pain Score 4-6, Start date: 06/08/15 8:54:00, Duration: 30 day, Stop date: 07/08/15 8:53:00Notes: (Same as: Roxicodone) Metoprolol 1 mg, 1 mL, No Longer [facility] Route: IVP, Drug Active 2015 Medical form: INJ, Center Q5Min, Dosing Weight 145.455, kg, PRN Other -See Comment, Start date: 06/08/15 8:54:00, Duration: 5 doses or times, Stop date: 06/09/15 0:00:00Notes: (Same as: Lopressor) Push over 2 minutes Labetalol 10 mg, 2 mL, No Longer [facility] Route: IVP, Drug Active 2015 Medical form: INJ, Center Q5Min, Dosing Weight 145.455, kg, PRN Elevated BP, Start date: 06/08/15 8:54:00, Duration: 5 doses or times, Stop date: 06/09/15 0:00:00 Ondansetron 4 mg, 2 mL, No Longer [place] Route: IVP, Drug Active 2015 Medical form: INJ, ONCE, Center Dosing Weight 145.455, kg, PRN Nausea & Vomiting, Start date: 06/08/15 8:54:00Notes: (Same as: Zofran) MEDICATION WASTE Product Size: 4 mg Product Wasted: ___ mg Hydromorphone 0.5 mg, 0.25 mL, No Longer [place] Route: IVP, Drug Active 2015 Medical form: INJ, Center Q5Min, Dosing Weight 145.455, kg, PRN Pain Score 7-10, Start date: 06/08/15 8:54:00, Duration: 4 doses or times, Stop date: 06/09/15 0:00:00Notes: Same as: Dilaudid Naloxone 0.04 mg, 0.1 mL, No Longer [facility] Route: IVP, Drug Active 2015 Medical form: INJ, Center Q2MIN, Dosing Weight 145.455, kg, PRN Narcotic Reversal, Start date: 06/08/15 8:54:00, Duration: 8 doses or times, Stop date: 06/09/15 0:00:00Notes: Same as Narcan Flumazenil 0.2 mg, 2 mL, No Longer [facility] Route: IVP, Drug Active 2015 Medical form: [...] Famotidine 40 40 mg=1 tab, PO, Active [facility] MG Oral Tablet Daily, # 30 tab, 2016 Medical [Pepcid] 0 Refill(s) Center {21 See Active [facility] (Methylpredniso Instructions, 2016 Medical lone 4 MG Oral PO, Take by Center Tablet mouth as [Medrol]) } directed on Pack [Medrol label., X 6 day, Dosepak] # 1 Pack, 0 Refill(s) ceFAZolin 2 gm, 100 mL, Inactive [facility] Route: IVPB, 2015 Medical Drug form: INJ, Center PRE OP, Start date: 06/08/15 5:00:00, Duration: 30 day, Stop date: 07/08/15 4:59:00Notes: Same as: Ancef Allergies, Adverse Reactions, Alerts No Known Medication Allergies Immunizations No Data Provided for This Section Results Order Name Results Value Reference Date Interpretation Comments Source Range CHEM PANEL B/C Ratio 11 6 - 25 [facility] 2015 [facility] CHEM PANEL AGAP 12.0 10.0 - 20.0 [facility] 2015 [facility] CHEM PANEL Globulin 3.1 2.0 - 4.0 [facility] 2015 [facility] CHEM PANEL A/G Ratio 1.5 0.7 - 1.6 [facility] 2015 [facility] CHEM PANEL eGFR 100 [facility] 2015 Comment: The Medical eGFR is Center calculated using the CKD-EPI formula. In most young, healthy individuals the eGFR will be >90 mL/min/1.73m2 . The eGFR declines with age. An eGFR of 60-89 may be normal in some populations, particularly the elderly, for whom the CKD-EPI formula has not been extensively validated. Use of the eGFR is not recommended in the following populations:< br/>
Noy viduals with unstable creatinine concentration s, including patients and those with serious co-morbid conditions.<b r/>
Patie nts with extremes in muscle mass or diet.

The data above are obtained from the National Kidney Disease Education Program (NKDEP) which additionally recommends that when the eGFR is used in patients with extremes of body mass index for purposes of drug dosing, the eGFR should be multiplied by the estimated BMI. CHEM PANEL Bili Total 0.7 0.2 - 1.3 03/21/ [facility] 2015 [facility] CHEM PANEL ALT 85 0 - [address] CHEM PANEL Albumin Lvl 4.5 3.5 - 5.[address] CHEM PANEL Alk Phos 55 39 - 136 [facility] 2015 [facility] CHEM PANEL AST 31 0 - [address] CHEM PANEL Glucose Lvl 106 70 - 99 [facility] 2015 [facility] CHEM PANEL BUN 11 7 - 22 [facility] 2015 [facility] CHEM PANEL Creatinine 0.99 0.50 - 1.40 [facility] 2015 [facility] CHEM PANEL Sodium Lvl 143 135 - 145 [facility] 2015 [facility] CHEM PANEL Potassium Lvl 5.0 3.5 - 5.1 [facility] 2015 [facility] CHEM PANEL Chloride Lvl 104 95 - 109 [facility] 2015 [facility] CHEM PANEL CO2 32 24 - 32 [facility] 2015 [facility] CHEM PANEL Calcium Lvl 9.3 8.5 - 10.[address] CHEM PANEL Total Protein 7.6 6.4 - 8.[address] HEMATOLOGY Lymphocytes # 2.9 1.0 - 5.[address] HEMATOLOGY Monocytes # 0.4 0.0 - 0.[address] HEMATOLOGY Monocytes 5.1 2.0 - 12.[address] HEMATOLOGY Basophils 0.5 0.0 - 1.[address] HEMATOLOGY Eosinophils 1.5 0.0 - 4.[address] HEMATOLOGY Segs-Bands # 5.1 1.5 - 8.[address] HEMATOLOGY Segs 59.4 45.0 - 75.[address] HEMATOLOGY Lymphocytes 33.5 20.0 - 40.[address] HEMATOLOGY Eosinophils # 0.1 0.0 - 0.[address] HEMATOLOGY INR 0.99 0.85 - 1.[address] HEMATOLOGY PT 13.4 12.0 - 14.[address] HEMATOLOGY PTT 29.6 22.9 - 35.[address] HEMATOLOGY MCHC 33.7 32.0 - 36.[address] HEMATOLOGY RDW 13.4 11.5 - 14.[address] HEMATOLOGY MPV 8.3 7.4 - 10.[address] HEMATOLOGY Platelet 235 133 - [address] HEMATOLOGY MCH 29.5 27.0 - 31.[address] HEMATOLOGY Hgb 16.5 14.0 - 18.[address] HEMATOLOGY MCV 87.5 80.0 - 94.[address] HEMATOLOGY Hct 49.0 42.0 - 54.[address] HEMATOLOGY WBC 8.6 3.7 - 10.[address] HEMATOLOGY RBC 5.60 4.70 - 6.[address] SPECIAL Hgb A1C 5.7 <=5.6 % [facility] CHEMISTRY [address] [place] [address] Pathology Reports No Data Provided for This Section Diagnostic Reports No Data Provided for This Section Consultation Notes No Data Provided for This Section Discharge Summaries No Data Provided for This Section History and Physicals No Data Provided for This Section Vital Signs Vital Sign Value Date Comments Source Respitory Rate 16 06/08/2015 [facility] Systolic (mm Hg) 128 06/08/2015 [facility] Diastolic (mm Hg) 67 06/08/2015 [facility] Respitory Rate 13 06/08/2015 [facility] Systolic (mm Hg) 124 06/08/2015 [facility] Diastolic (mm Hg) 86 06/08/2015 [facility] Respitory Rate 14 06/08/2015 [facility] Systolic (mm Hg) 99 06/08/2015 [facility] Diastolic (mm Hg) 73 06/08/2015 [facility] Weight 145.455 06/08/2015 [facility] BMI Calculated 42.31 06/08/2015 [facility] Height 185.42 cm 06/08/2015 [facility] Heart Rate 94 06/08/2015 [facility] Height 182.88 cm 05/29/2015 [facility] Weight 151.364 05/29/2015 [facility] BMI Calculated 45.26 05/29/2015 [facility] Encounters Location Location Encounter Encounter Reason Attending ADM DC Status Source Details Type Number For Provider Date Date Visit Outpatient [id number] ARNAUD TOWNSEND 06/07 [facility] OBS Day [id number] Arnaud Townsend 06/07 06/08 [facility] Surgery /2015 [facility] Outpatient [id number] LIANG 06/19 [facility] [place] Outpatient [id number] ARNAUD TOWNSEND 08/13 [facility] [place] Outpatient [id number] ARNAUD TOWNSEND 11/21 [facility] [place] Procedures Procedure Code Date Perfomer Comments Source Cyst - pilonidal [id number] [facility] removed 2004 [facility] Epidural steroid [id number] [facility] injection [address] [place] [address] Assessment and Plan No Data Provided for This Section Plan of Care No Data Provided for This Section Social History Social History Date Source Social History TypeResponse 06/08/2015 [facility] Smoking Status Never smoker; Exposure to Tobacco Smoke None; Cigarette Smoking Last 365 Days No; Reg Smoking Cessation Counseling No Family History No Data Provided for This Section Advance Directives No Data Provided for This Section Functional Status No Data Provided for This Section
--- OUTSIDE RECORDS SUMMARY | 2018-10-01 15:43 | XMS REPORT ---
:1980 [facility] Team Providers Name Role Phone [...] Status Dosage System Date Date Omeprazole NDC 18578680303 40 MG Orally Active 1 capsule Once a day Synthroid NDC 02360244172 50 MCG Orally Active 1 tablet on Once a day an empty stomach in the morning Synthroid NDC 69811153489 50 MCG Orally Active 1 tablet on Once a day an empty stomach in the morning Lyrica [facility] 72093957352 150 MG Orally Active 1 capsule 1 Twice a day to 3 hours before bedtime in the evening Neomycin-Polym [facility] 31516713152 3.5-83533-5 Otic Nov 04, Active 4 drops yxin-HC Twice a day 2017 into affected ear Vitamin D [facility] 10801969843 1000 UNIT Orally Active 1 tablet Once a day Vitamin B-1 [facility] 68645416030 100 MG Orally Active 1 tablet Once a day Lyrica [facility] 39641345222 150 Active TAKE ONE CAPSULE BY MOUTH TWICE DAILY Results No Known Results Summary Purpose eClinicalWorks Submission
--- OUTSIDE RECORDS SUMMARY | 2018-10-01 15:43 | XMS REPORT ---
[...] End Status Dosage System Date Date Lyrica [facility] 67929635448 150 Active TAKE ONE CAPSULE BY MOUTH TWICE DAILY Omeprazole ND 67968557495 40 MG Orally Active 1 capsule Once a day Vitamin B-1 [facility] 02755346656 100 MG Orally Active 1 tablet Once a day Vitamin D [facility] 25684115353 1000 UNIT Active 1 tablet Orally Once a day Neomycin-Polymyx [facility] 54934221944 3.5-99598-0 Nov 04, Active 4 drops in-HC Otic Twice a 2018 into day affected ear Lyrica [facility] 96604121146 150 MG Orally Active 1 capsule 1 Twice a day to 3 hours before bedtime in the evening Azithromycin ND 82401949068 250 MG Orally Feb 17, Feb 22, Active 2 tablets Once a day 2017 2017 on the first day, then 1 tablet daily for 4 days Synthroid [facility] 76233045203 50 MCG Orally Active 1 tablet on Once a day an empty stomach in the morning Results Name Result Date Reference Range Unit Abnormality Flag FLU TEST ----A Neg [id number] ----B Neg [id number] Summary Purpose eClinicalWorks Submission
--- OUTSIDE RECORDS SUMMARY | 2018-10-01 15:43 | XMS REPORT ---
[...] End Status Dosage System Date Date Lyrica [facility] 95846818863 150 Active TAKE ONE CAPSULE BY MOUTH TWICE DAILY Neomycin-Polym [facility] 11775194454 3.5-68526-6 Otic Nov 04, Active 4 drops yxin-HC Twice a day 2018 into affected ear Vitamin B-1 ND 93353016370 100 MG Orally Active 1 tablet Once a day Synthroid ND 33716997377 50 MCG Orally Active 1 tablet on Once a day an empty stomach in the morning Omeprazole ND 55496756492 40 MG Orally Active 1 capsule Once a day Lyrica [facility] 55399072565 150 MG Orally Active 1 capsule 1 Twice a day to 3 hours before bedtime in the evening Vitamin D [facility] 03560610305 1000 UNIT Orally Active 1 tablet Once a day Results No Known Results Summary Purpose eClinicalWorks Submission
--- OUTSIDE RECORDS SUMMARY | 2018-10-01 15:43 | XMS REPORT ---
[...] Start End Date Status Dosage Date Lyrica [facility] 52008562388 150 MG Orally Active 1 capsule 1 Twice a day to 3 hours before bedtime in the evening Results No Known Results Summary Purpose eClinicalWorks Submission
--- OUTSIDE RECORDS SUMMARY | 2018-10-01 15:43 | XMS REPORT ---
[...] Status Dosage System Date Date Duloxetine HCl [facility] 80656039799 30 MG Orally May 22, Active 1 capsule Once a day 2018 Lyrica [facility] 73629858616 150 MG Orally Active 1 capsule Twice a day 1 to 3 hours before bedtime in the evening Omeprazole [facility] 49049855533 40 MG Orally Active 1 capsule Once a day Vitamin B-1 [facility] 90240708473 100 MG Orally Active 1 tablet Once a day Synthroid [facility] 47187930864 50 MCG Orally Active 1 tablet Once a day on an empty stomach in the morning Vitamin D [facility] 26776028692 1000 UNIT Orally Active 1 tablet Once a day Results No Known Results Summary Purpose eClinicalWorks Submission
--- OUTSIDE RECORDS SUMMARY | 2018-10-01 15:43 | XMS REPORT ---
:1980 Author Organization [employer]ClinicalWorks Care Team Providers Name Role Phone Benedict [facility] Provider Role Unavailable Allergies, Adverse Reactions, [...] Date Status Dosage System Date Vitamin D [facility] 58964691339 1000 UNIT Orally Active 1 tablet Once a day Synthroid [facility] 90051477440 50 MCG Orally Active 1 tablet on Once a day an empty stomach in the morning Lyrica [facility] 23040905243 150 Active TAKE ONE CAPSULE BY MOUTH TWICE DAILY Vitamin B-1 ND 81077873664 100 MG Orally Active 1 tablet Once a day Omeprazole ND 53495207115 40 MG Orally Active 1 capsule Once a day Lyrica [facility] 74873611615 150 MG Orally Active 1 capsule 1 Twice a day to 3 hours before bedtime in the evening Results No Known Results Summary Purpose [facility]
--- NOTE | 2018-10-01 16:30 | EDPHYS ---
Physician Documentation [facility] Name: Won Lam Age: 38 yrs Sex: Male : 1980 Arrival Date: 10/01/2018 Time: 15:41 Bed 25 Private MD: Benedict [facility] ED Physician Noble Moreno HPI: 10/01 16:20 This 38 yrs old Male presents to ER via Ambulatory with complaints of kb Shoulder Pain, Neck and Upper Back Pain. 16:25 The patient presents with pain that is chronic. The symptoms are located in the kb thoracic area. Onset: The symptoms/episode began/occurred 1 month(s) ago. The pain radiates to the left arm. Associated signs and symptoms: Pertinent positives: nausea, tingling. The problem was sustained without known cause. Modifying factors: The patient symptoms are alleviated by nothing, the patient symptoms are aggravated by any movement. Severity of symptoms: At their worst the symptoms were moderate, in the emergency department the symptoms are unchanged. The patient has not experienced similar symptoms in the past. The patient has been recently seen by a physician:. Pt reports he started having back and left shoulder pain a month ago with intermittent tingling and numbness to fingers. Was seen here and given muscle relaxers and steroids and told to follow up for possible MRI. Followed up with ortho that recommended he see a lan support specialist. Followed up with a lan support specialist, they did x-rays that were normal and ordered the MRI. States that was a couple of days ago, but he can't afford to pay for the MRI so he came here hoping we would do the MRI in the ER. . Historical: - Allergies: 15:59 No Known Drug Allergies; hj - PMHx: 15:59 None; hj - PSHx: 15:59 cyst removal; back; hj - Immunization history:: Adult Immunizations unknown. - Social history:: Smoking status: unknown. - Ebola Screening: : Patient negative for fever greater than or equal to 101.5 degrees Fahrenheit, and additional compatible Ebola Virus Disease symptoms Patient denies exposure to infectious person Patient denies travel to an Ebola-affected area in the 21 days before illness onset No symptoms or risks identified at this time. ROS: 16:20 Constitutional: Negative for fever, chills, and weight loss, Neck: Negative for injury, kb pain, and swelling, Cardiovascular: Negative for chest pain, palpitations, and edema, Respiratory: Negative for shortness of breath, cough, wheezing, and pleuritic chest pain, Abdomen/GI: Negative for abdominal pain, nausea, vomiting, diarrhea, and constipation, : Negative for injury, bleeding, discharge, and swelling, MS/Extremity: Negative for injury and deformity, Skin: Negative for injury, rash, and discoloration, Neuro: Negative for headache, weakness, numbness, tingling, and seizure. 16:20 Back: Positive for pain at rest, pain with movement, radiated pain. Exam: 16:20 Constitutional: This is a well developed, well nourished patient who is awake, alert, kb and in no acute distress. Head/Face: Normocephalic, atraumatic. ENT: Nares patent. No nasal discharge, no septal abnormalities noted. Tympanic membranes are normal and external auditory canals are clear. Oropharynx with no redness, swelling, or masses, exudates, or evidence of obstruction, uvula midline. Mucous membranes moist. Neck: Trachea midline, no thyromegaly or masses palpated, and no cervical lymphadenopathy. Supple, full range of motion without nuchal rigidity, or vertebral point tenderness. No Meningismus. Chest/axilla: Normal chest wall appearance and motion. Nontender with no deformity. No lesions are appreciated. Cardiovascular: Regular rate and rhythm with a normal S1 and S2. No gallops, murmurs, or rubs. Normal PMI, no JVD. No pulse deficits. Respiratory: Lungs have equal breath sounds bilaterally, clear to auscultation and percussion. No rales, rhonchi or wheezes noted. No increased work of breathing, no retractions or nasal flaring. Abdomen/GI: Soft, non-tender, with normal bowel sounds. No distension or tympany. No guarding or rebound. No evidence of tenderness throughout. Skin: Warm, dry with normal turgor. Normal color with no rashes, no lesions, and no evidence of cellulitis. MS/ Extremity: Pulses equal, no cyanosis. Neurovascular intact. Full, normal range of motion. Neuro: Awake and alert, GCS 15, oriented to person, place, time, and situation. Cranial nerves II-XII grossly intact. Motor strength 5/5 in all extremities. Sensory grossly intact. Cerebellar exam normal. Normal gait. 16:20 Back: pain, that is moderate, of the thoracic area, ROM is normal, normal spinal alignment noted. Vital Signs: 15:59 BP 156 / 104; Pulse 101; Resp 18; Temp 98.0(TE); Pulse Ox 97% on R/A; Weight 154.22 kg; hj Height 6 ft. 1 in. (185.42 cm); Pain 8/10; 15:59 Body Mass Index 44.86 (154.22 kg, 185.42 cm) hj MDM: 16:04 Patient medically screened. kb 16:25 Data reviewed: vital signs, nurses notes. Data interpreted: Pulse oximetry: on room air kb is 97 %. Interpretation: normal. Counseling: I had a detailed discussion with the patient and/or guardian regarding: the historical points, exam findings, and any diagnostic results supporting the discharge/admit diagnosis, the need for outpatient follow up, a family practitioner, to return to the emergency department if symptoms worsen or persist or if there are any questions or concerns that arise at home. 16:28 ED course: Educated that we do not do nonemergent MRIs in the ER and that he needs to kb follow up. Will prescribe different medications for symptoms. Pt reports he was wearing a soft brace that seemed to help so I recommended that he try that again. Verbal understanding received. . Administered Medications: 16:30 Drug: [employer] 10 mg-325 mg 1 tabs Route: PO; iw Disposition: 10/02 06:40 Co-signature as Attending Physician, Noble Moreno MD I agree with the assessment and kdr plan of care. Chart complete. Disposition: 10/01/18 16:29 Discharged to Home. Impression: Radiculopathy, thoracic region. - Condition is Stable. - Discharge Instructions: Radicular Pain. - Prescriptions for Cyclobenzaprine 10 mg Oral Tablet - take 1 tablet by ORAL route every 8 hours As needed; 21 tablet. Diclofenac Sodium 75 mg Oral Tablet, Delayed Release (E.C.) - take 1 tablet by ORAL route 2 times per day As needed; 30 tablet. - Medication Reconciliation Form, Thank You Letter, Antibiotic Education, Prescription Opioid Use form. - Follow up: Emergency Department; When: As needed; Reason: Worsening of condition. Follow up: Private Physician; When: 2 - 3 days; Reason: Recheck today's complaints, Continuance of care, Re-evaluation by your physician. Signatures: Adriane Hamilton, TANVIRC OFFICE MANAGER-Noble Islas MD MD kdr Shila Sweeney RN RN iw Robb Lawrence RN RN Corrections: (The following items were deleted from the chart) 10/01 16:41 16:29 10/01/2018 16:29 Discharged to Home. Impression: Radiculopathy, thoracic region. iw Condition is Stable. Forms are Medication Reconciliation Form, Thank You Letter, Antibiotic Education, Prescription Opioid Use. Follow up: Emergency Department; When: As needed; Reason: Worsening of condition. Follow up: Private Physician; When: 2 - 3 days; Reason: Recheck today's complaints, Continuance of care, Re-evaluation by your physician. kb
--- NOTE | 2018-10-01 16:30 | ER ---
Nurse's Notes [facility] Name: Won Lam Age: 38 yrs Sex: Male : 1980 Arrival Date: 10/01/2018 Time: 15:41 Bed 25 Private MD: Alexandr Mcmullen Diagnosis: Radiculopathy, thoracic region Presentation: 10/01 15:56 Presenting complaint: Patient states: a month ago, i came in here for neck pain and hj shoulder pain, denies trauma to the area, the pain is still there and its getting worse; was told to f/u with a specialist and MRI was recommended but unable to do, pain is 8/10;. Transition of care: patient was not received from another setting of care. Onset of symptoms was October 01, 2018. Risk Assessment: Do you want to hurt yourself or someone else? Patient reports no desire to harm self or others. Initial Sepsis Screen: Does the patient meet any 2 criteria? No. Patient's initial sepsis screen is negative. Does the patient have a suspected source of infection? No. Patient's initial sepsis screen is negative. Care prior to arrival: None. 15:56 Method Of Arrival: Ambulatory 15:56 Acuity: JERED 4 hj Triage Assessment: 16:40 General: Appears in no apparent distress. Behavior is calm. iw Historical: - Allergies: 15:59 No Known Drug Allergies; hj - PMHx: 15:59 None; hj - PSHx: 15:59 cyst removal; back; hj - Immunization history:: Adult Immunizations unknown. - Social history:: Smoking status: unknown. - Ebola Screening: : Patient negative for fever greater than or equal to 101.5 degrees Fahrenheit, and additional compatible Ebola Virus Disease symptoms Patient denies exposure to infectious person Patient denies travel to an Ebola-affected area in the 21 days before illness onset No symptoms or risks identified at this time. Screenin:40 Abuse screen: Denies threats or abuse. Denies injuries from another. Nutritional iw screening: No deficits noted. Tuberculosis screening: No symptoms or risk factors identified. Fall Risk None identified. Assessment: 16:20 General: Appears in no apparent distress. Behavior is calm, cooperative. Pain: iw Complains of pain in neck Pain radiates to left arm and thoracic area. Neuro: Level of Consciousness is awake, alert, obeys commands, Oriented to person, place, time, situation, Moves all extremities. Full function Gait is steady. Cardiovascular: Patient's skin is warm and dry. Respiratory: Respiratory effort is even, unlabored, Respiratory pattern is regular, symmetrical. GI: No signs and/or symptoms were reported involving the gastrointestinal system. Derm: Skin is intact, is healthy with good turgor, Skin is pink, warm \T\ dry. normal, Skin temperature is warm. Musculoskeletal: Range of motion: intact in all extremities, Reports pain in neck and left arm and thoracic area. Vital Signs: 15:59 BP 156 / 104; Pulse 101; Resp 18; Temp 98.0(TE); Pulse Ox 97% on R/A; Weight 154.22 kg; hj Height 6 ft. 1 in. (185.42 cm); Pain 8/10; 15:59 Body Mass Index 44.86 (154.22 kg, 185.42 cm) hj ED Course: 15:41 Patient arrived in ED. as 15:41 Alexandr Mcmullen DO is Private Physician. as 15:58 Triage completed. hj 15:59 Arm band placed on left wrist. hj 16:00 Patient has correct armband on for positive identification. iw 16:04 Adriane Hamilton FNP-C is [facility]. kb 16:04 Noble Moreno MD is Attending Physician. kb 16:04 Shila Sweeney, RN is Primary Nurse. iw 16:40 No provider procedures requiring assistance completed. Patient did not have IV access iw during this emergency room visit. Administered Medications: 16:30 Drug: Ramona 10 mg-325 mg 1 tabs Route: PO; iw Outcome: 16:29 Discharge ordered by . kb 16:40 Discharged to home ambulatory, with family. iw 16:40 Condition: good 16:40 Discharge instructions given to patient, family, Instructed on discharge instructions, follow up and referral plans. medication usage, Demonstrated understanding of instructions, follow-up care, medications, Prescriptions given X 2. 16:41 Patient left the ED. iw Signatures: Adriane Hamilton FNP-C FNP-Comfort Almanza as Shila Sweeney RN RN iw Robb Lawrence RN RN Corrections: (The following items were deleted from the chart) 16:01 15:56 Presenting complaint: Patient states: a month ago, i came in here for neck pain hj and shoulder pain, denies trauma to the area, the pain is still there and its getting worse; was told to f/u with a specialist and MRI was recommended but unable to do, pain is 8/10; hj 16:01 15:59 Pulse 101bpm; Resp 18bpm; Pulse Ox 97% RA; Temp 98.0F Temporal; 154.22 kg; Height hj 6 ft. 1 in.; BMI: 44.8; Pain 8/10; hj 16:01 15:59 Pulse 101bpm; Resp 18bpm; Pulse Ox 97% RA; Temp 98.0F Temporal; 154.22 kg; Height hj 6 ft. 1 in.; BMI: 44.8; Pain 8/10; hj
[2018-10-01] MEDS ORDERED: HYDROCODONE/APAP 10/325 TAB ONE (16:45)
[2018-10-01 16:55] VITALS: BP 156/104; TEMP 98; O2SAT 97
== END 2018-10-01 16:41 | disposition home or self-care (01) ==
LOC: ER 15:40
DX: M54.14 Radiculopathy, thoracic region (principal)
CPT/HCPCS: 99283